=== PATIENT | female | born 1970 | race Caucasian/White ===

== ENCOUNTER 2016-04-11 21:14 | Emergency (ER) | payer MEDICAID ==
[2016-04-11 21:28] VITALS: BMI 32.1
[2016-04-11] MEDS ORDERED: NS 1,000 ML IV ONE (21:51)
[2016-04-11] MEDS ORDERED: ONDANSETRON HCL 4 MG/2 ML VIAL IV ONE (21:51)
[2016-04-11] MEDS ORDERED: HYDROmorphone 1 MG INJECTION IV ONE (21:51)
[2016-04-11 22:16] LABS: AUTOMATED BASOPHIL 0.6 % (0-2); AUTOMATED EOSINOPHIL 0.9 % (0-5); AUTOMATED LYMPH 30.9 % (17-44); AUTOMATED NEUTROPHIL 58.6 % (45-76)
[2016-04-11 22:25] LABS: BLOOD UREA NITROGEN 12 MG/DL (7-17); CALCIUM 9.9 MG/DL (8.4-10.2); CALCULATED OSMOLALITY 274 MOs/Kg (270-290); CHLORIDE 101 mEq/L (98-107); GLUCOSE 212 mg/dL (70-99); SODIUM LEVEL 139 mEq/L (137-146); TOTAL PROTEIN 7.6 G/DL (6.3-8.2)
[2016-04-11 22:26] LABS: LEUKOCYTES/URINE NEG (NEGATIVE); NITRITE/URINE NEG (NEGATIVE); RBC/URINE 0-2 (0-5); URINE OCCULT BLOOD NEG (NEG/TRACE); WBC/URINE 0-2 (0-5)
--- NOTE | 2016-04-11 23:39 | DIRPT ---
CLINICAL DATA: Right flank pain for 12 hours. History of stones. EXAM: CT ABDOMEN AND PELVIS WITHOUT CONTRAST TECHNIQUE: Multidetector CT imaging of the abdomen and pelvis was performed following the standard protocol without IV contrast. COMPARISON: CT 3 weeks prior 03/21/2016. Multiple prior CT and renal ultrasound reviewed. FINDINGS: Lower chest: The included lung bases are clear. Coronary artery calcifications are partially included. Liver: No focal lesion allowing for lack contrast. Probable granuloma about the medial right capsule. Hepatobiliary: Gallbladder physiologically distended, no calcified stone. No biliary dilatation. Pancreas: Normal. Spleen: Normal. Adrenal glands: 3.8 cm left adrenal adenoma is unchanged. Right adrenal gland is normal. Kidneys: Punctate nonobstructing stone in the upper right kidney is unchanged. No hydronephrosis or obstructive uropathy. No left hydronephrosis. Gross ureters are decompressed without stones along the course. Stomach/Bowel: Stomach physiologically distended. There are no dilated or thickened small bowel loops. Small volume of stool throughout the colon without colonic wall thickening. The appendix is normal. Vascular/Lymphatic: No retroperitoneal adenopathy. Abdominal aorta is normal in caliber. Mild atherosclerosis. Reproductive: Uterus surgically absent. No adnexal mass. Bladder: Physiologically distended without stone. Other: No free air, free fluid, or intra-abdominal fluid collection. Musculoskeletal: There are no acute or suspicious osseous abnormalities. Postsurgical change in the lower lumbar spine. IMPRESSION: Unchanged nonobstructing right renal stone. No obstructive uropathy or acute intra-abdominal process. Electronically Signed By: Milagro Argueta M.D. On: 04/11/2016 23:37
--- NOTE | 2016-04-11 23:48 | EDPRACDOC ---
- General Information Chief Complaint: Female Urogenital Problems Stated Complaint: ABD PAIN,ALLERGIC REACTION Time Seen by Provider: 04/11/16 22:53 Information Source: Patient Mode Of Arrival: Ambulance Home Medications: Home Medications Albuterol Sulfate [Proventil Hfa] 1 - 2 puff INH Q4H PRN 10/07/14 Diltiazem HCl [Diltiazem 24Hr ER] 240 mg PO DAILY 10/07/14 Duloxetine [Cymbalta] 60 mg PO BID 10/07/14 Exenatide [Byetta] 5 mcg SQ BID 10/07/14 Fluoxetine HCl 60 mg PO DAILY 10/07/14 Glipizide [Glucotrol] 10 mg PO BID(DON) 10/07/14 Insulin Glargine [Lantus Pen] 30 units SQ BID 10/07/14 Metformin HCl [Glucophage] 500 mg PO BID 10/07/14 Promethazine HCl 25 mg PO Q6H PRN 10/07/14 Metoclopramide HCl [Reglan] 5 mg PO Q8 PRN #30 tab 12/03/14 Ondansetron [Zofran Odt] 4 mg PO TID PRN #10 tab.rapdis 04/11/16 Tramadol HCl 50 mg PO Q6 PRN #7 tablet 04/11/16 Allergies/Adverse Reactions: Allergies Allergy/AdvReac Type Severity Reaction Status Date / Time ibuprofen Allergy Hives* Verified 12/03/14 19:54 ketorolac tromethamine Allergy Hives* Verified 12/03/14 19:54 [From Toradol] Sulfa (Sulfonamide Allergy Nausea/Vomi Verified 12/03/14 19:54 Antibiotics) ting sulfamethoxazole Allergy Edema-Gener Verified 12/03/14 19:54 [From Bactrim] alized trimethoprim [From Bactrim] Allergy Edema-Gener Verified 12/03/14 19:54 alized - History of Present Illness Onset: 10 am HPI: C/o right flank pain since this am with pain radiating to groin, with N/V. Denies vaginal sx, urinary sx, fever, sob, cp. Hx of kidney stone 2 months ago at [facility]. Med hx = DM, [place] 2016, HTN. Surgical hx = partial hysterectomy (left ovary still present). 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 YES Medications REAL E[employer] ASSOCIATE ATTORNEY (Medication/ Morphine 4mg IV Dose/Time) EMS Treatment BLS IV Yes ED Past Medical History - History Reviewed Yes Nurses notes reviewed and agree except as marked - Patient Medical History Cardiac History: Reports: Hypertension, Heart Attack Psychological History: Denies: Depression Systemic History: Reports: Diabetes - Social Medical History Smoking Status: Heavy tobacco smoker (5 or more cigarettes/day or daily pipe/ cigar) EDM Review of Systems - Review of Systems ROS Negative Except as Marked: Yes All systems reviewed and were negative except as marked Gastrointestinal: Diarrhea, Nausea Genitourinary: Flank Pain (right) - Physical Exam Constitutional: Distress (pain) Oriented to: Time, Person, Place Last recorded Vital Signs: Last Vital Signs Temp Pulse 112 04/11/16 21:24 Resp 20 04/11/16 21:24 BP 127/79 04/11/16 21:24 Pulse Ox 91 04/11/16 21:24 Oxygen Pulse Oxygen Saturation 91 O2 Device Room Air Oxygen Flow Rate Fraction of Inspired Oxygen ( FIO2) - HEENT Head: Normal Eye Exam: negative: Conjunctival Injection, Scleral Icterus Oropharynx: negative: Drooling TMJ: Normal Nose: No Symptoms Reported Neck: Normal - Respiratory/Cardiovascular Respiratory: Normal - CTA Cardiovascular: Normal - GI Auscultation: Normal Palpation: Normal Tenderness: Other (right flank) Moreno's Sign: Negative - Musculoskeletal Back: Normal Extremities: Normal - Integumentary Skin: Normal - Neurologic Thought: Coherent Perception: Normal - Results 04/11/16 22:10 04/11/16 22:10 WBC 10.1 xk/uL (3.8-10.8) 04/11/16 22:10 RBC 5.33 xM/uL (4.20-5.40) 04/11/16 22:10 Hgb 14.9 g/dL (12.0-16.0) 04/11/16 22:10 Hct 44.2 % (36-47) 04/11/16 22:10 MCV 83 fL (81-99) 04/11/16 22:10 MCH 28.0 pg (27-32) 04/11/16 22:10 MCHC 33.8 g/dl (33-36) 04/11/16 22:10 RDW 17.3 % (11.5-14.5) H 04/11/16 22:10 Plt Count 208 xk/uL (130-400) 04/11/16 22:10 MPV 8.0 fL (7.4-10.4) 04/11/16 22:10 Neut % (Auto) 58.6 % (45-76) 04/11/16 22:10 Lymph % (Auto) 30.9 % (17-44) 04/11/16 22:10 [place] % (Auto) 9.0 % (3-10) 04/11/16 22:10 Eos % (Auto) 0.9 % (0-5) 04/11/16 22:10 Baso % (Auto) 0.6 % (0-2) 04/11/16 22:10 Absolute Neuts (auto) 5.86 xk/uL (1.7-8.2) 04/11/16 22:10 Absolute Lymphs (auto) 3.03 xk/uL (0.65-4.75) 04/11/16 22:10 Sodium 139 mEq/L (137-146) 04/11/16 22:10 Potassium 4.4 mEq/L (3.5-5.1) 04/11/16 22:10 Chloride 101 mEq/L (98-107) 04/11/16 22:10 Carbon Dioxide 20 mMOL/L (22-33) L 04/11/16 22:10 Anion Gap 22 mEq/L (8-16) H 04/11/16 22:10 BUN 12 MG/DL (7-17) 04/11/16 22:10 Creatinine 0.50 MG/DL (0.52-1.04) L 04/11/16 22:10 Estimated GFR (MDRD) > 60 mL/min (>=60) 04/11/16 22:10 Glucose 212 mg/dL (70-99) H 04/11/16 22:10 Calculated Osmolality 274 MOs/Kg (270-290) 04/11/16 22:10 Calcium 9.9 MG/DL (8.4-10.2) 04/11/16 22:10 Total Bilirubin 0.5 MG/DL (0.2-1.3) 04/11/16 22:10 AST 19 IU/L (14-36) 04/11/16 22:10 ALT 37 IU/L (9-52) 04/11/16 22:10 Alkaline Phosphatase 153 IU/L (38-126) H 04/11/16 22:10 Total Protein 7.6 G/DL (6.3-8.2) 04/11/16 22:10 Albumin 4.5 G/DL (3.5-5.0) 04/11/16 22:10 Urine Color Yellow 04/11/16 22:10 Urine Clarity Sl cldy 04/11/16 22:10 Urine pH 5.0 (5.0-8.0) 04/11/16 22:10 Ur Specific [place] 1.005 (1.003-1.035) 04/11/16 22:10 Urine Protein Neg (NEG/TRACE) 04/11/16 22:10 Urine Glucose (UA) 3+ (NEGATIVE) H 04/11/16 22:10 Urine Ketones 1+ (NEGATIVE) H 04/11/16 22:10 Urine Occult Blood Neg (NEG/TRACE) 04/11/16 22:10 Urine Nitrite Neg (NEGATIVE) 04/11/16 22:10 Urine Bilirubin Neg (NEGATIVE) 04/11/16 22:10 Urine Urobilinogen <2.0 MG/DL (0-1) 04/11/16 22:10 Ur Leukocyte Esterase Neg (NEGATIVE) 04/11/16 22:10 Urine RBC 0-2 (0-5) 04/11/16 22:10 Urine WBC 0-2 (0-5) 04/11/16 22:10 Ur Epithelial Cells 1+ 04/11/16 22:10 Lab Results 04/11/16 04/11/16 04/11/16 22:10 22:10 22:10 WBC 10.1 RBC 5.33 Hgb 14.9 Hct 44.2 MCV 83 MCH 28.0 MCHC 33.8 RDW 17.3 H Plt Count 208 MPV 8.0 Neut % (Auto) 58.6 Lymph % (Auto) 30.9 [place] % (Auto) 9.0 Eos % (Auto) 0.9 Baso % (Auto) 0.6 Absolute Neuts (auto) 5.86 Absolute Lymphs (auto) 3.03 Sodium 139 Potassium 4.4 Chloride 101 Carbon Dioxide 20 L Anion Gap 22 H BUN 12 Creatinine 0.50 L Estimated GFR (MDRD) > 60 Glucose 212 H Calculated Osmolality 274 Calcium 9.9 Total Bilirubin 0.5 AST 19 ALT 37 Alkaline Phosphatase 153 H Total Protein 7.6 Albumin 4.5 Urine Color Yellow Urine Clarity Sl cldy Urine pH 5.0 Ur Specific [place] 1.005 Urine Protein Neg Urine Glucose (UA) 3+ H Urine Ketones 1+ H Urine Occult Blood Neg Urine Nitrite Neg Urine Bilirubin Neg Urine Urobilinogen <2.0 Ur Leukocyte Esterase Neg Urine RBC 0-2 Urine WBC 0-2 Ur Epithelial Cells 1+ - Diagnostic Imaging Pelvis Image interpreted by: Radiologist EXAM: CT ABDOMEN AND PELVIS WITHOUT CONTRAST TECHNIQUE: Multidetector CT imaging of the abdomen and pelvis was performed following the standard protocol without IV contrast. COMPARISON: CT 3 weeks prior 03/21/2016. Multiple prior CT and renal ultrasound reviewed. FINDINGS: Lower chest: The included lung bases are clear. Coronary artery calcifications are partially included. Liver: No focal lesion allowing for lack contrast. Probable granuloma about the medial right capsule. Hepatobiliary: Gallbladder physiologically distended, no calcified stone. No biliary dilatation. Pancreas: Normal. Spleen: Normal. Adrenal glands: 3.8 cm left adrenal adenoma is unchanged. Right adrenal gland is normal. Kidneys: Punctate nonobstructing stone in the upper right kidney is unchanged. No hydronephrosis or obstructive uropathy. No left hydronephrosis. Gross ureters are decompressed without stones along the course. Stomach/Bowel: Stomach physiologically distended. There are no dilated or thickened small bowel loops. Small volume of stool throughout the colon without colonic wall thickening. The appendix is normal. Vascular/Lymphatic: No retroperitoneal adenopathy. Abdominal aorta is normal in caliber. Mild atherosclerosis. Reproductive: Uterus surgically absent. No adnexal mass. Bladder: Physiologically distended without stone. Other: No free air, free fluid, or intra-abdominal fluid collection. Musculoskeletal: There are no acute or suspicious osseous abnormalities. Postsurgical change in the lower lumbar spine. IMPRESSION: Unchanged nonobstructing right renal stone. No obstructive uropathy or acute intra-abdominal process. Electronically Signed By: Milagro Argueta M.D. On: 04/11/2016 23:37 Decision Time to Discharge: 23:50 - Departure Disposition: Home Condition: Stable Final Diagnosis: Right flank pain Instructions: Kidney Stones (ED), Non-pharmacological Pain Management Therapies for Adults (GEN), Abdominal Pain (ED) Education/Counseling Given To: Patient Education/Counseling Given Regarding: Diagnosis, Treatment, Prognosis, Follow Up Referrals: None,No Provider [Primary Care Provider] - One Week Prescriptions: New Tramadol HCl 50 mg PO Q6 PRN #7 tablet PRN Reason: Pain Ondansetron [Zofran Odt] 4 mg PO TID PRN #10 tab.rapdis PRN Reason: Nausea/Vomiting No Action Promethazine HCl 25 mg PO Q6H PRN PRN Reason: Nausea/Vomiting Metformin HCl [Glucophage] 500 mg PO BID Fluoxetine HCl 60 mg PO DAILY Glipizide [Glucotrol] 10 mg PO BID(DON) Duloxetine [Cymbalta] 60 mg PO BID Diltiazem HCl [Diltiazem 24Hr ER] 240 mg PO DAILY Albuterol Sulfate [Proventil Hfa] 1 - 2 puff INH Q4H PRN PRN Reason: Shortness Of Breath Insulin Glargine [Lantus Pen] 30 units SQ BID Exenatide [Byetta] 5 mcg SQ BID Metoclopramide HCl [Reglan] 5 mg PO Q8 PRN #30 tab PRN Reason: Nausea Additional Instructions: Follow up with urology. Return to ED for any new or worsening symptoms.
[2016-04-11] MEDS ORDERED: ONDANSETRON HCL 4 MG ODT TAB PO ONE (23:53)
[2016-04-11] MEDS ORDERED: ACETAMINOPHEN 325 MG/TAB TABLET PO ONE (23:53)
[2016-04-12 00:19] VITALS: BP 126/84; PULSE 84
== END 2016-04-12 00:20 | disposition home or self-care (01) ==
LOC: ED 21:14
DX: R10.9 Unspecified abdominal pain (principal)
CPT/HCPCS: 36415; 74176; 80053; 81001; 85025; 96361; 96374; 96375; 99283; J1170; J2405; J3490

== ENCOUNTER 2016-04-12 03:23 | Emergency (ER) | payer SELFPAY ==
[2016-04-12 03:52] VITALS: TEMP 97.9; BMI 32.9
[2016-04-12] MEDS ORDERED: NS 1,000 ML IV ONE (04:00)
[2016-04-12] MEDS ORDERED: HYDROmorphone 1 MG INJECTION IV ONE (04:00)
[2016-04-12] MEDS ORDERED: ONDANSETRON HCL 4 MG/2 ML VIAL IV ONE (04:00)
[2016-04-12] MEDS ORDERED: OXYCODONE HCL 5 MG TABLET PO ONE (04:18)
--- NOTE | 2016-04-12 05:29 | EDPRACDOC ---
- General Information Chief Complaint: Female Urogenital Problems Stated Complaint: RT ABD PAIN Time Seen by Provider: 04/12/16 05:27 Information Source: Family Mode Of Arrival: Walk Home Medications: Home Medications Albuterol Sulfate [Proventil Hfa] 1 - 2 puff INH Q4H PRN 10/07/14 Diltiazem HCl [Diltiazem 24Hr ER] 240 mg PO DAILY 10/07/14 Duloxetine [Cymbalta] 60 mg PO BID 10/07/14 Exenatide [Byetta] 5 mcg SQ BID 10/07/14 Fluoxetine HCl 60 mg PO DAILY 10/07/14 Glipizide [Glucotrol] 10 mg PO BID(DON) 10/07/14 Insulin Glargine [Lantus Pen] 30 units SQ BID 10/07/14 Metformin HCl [Glucophage] 500 mg PO BID 10/07/14 Promethazine HCl 25 mg PO Q6H PRN 10/07/14 Metoclopramide HCl [Reglan] 5 mg PO Q8 PRN #30 tab 12/03/14 Ondansetron [Zofran Odt] 4 mg PO TID PRN #10 tab.rapdis 04/11/16 Tramadol HCl 50 mg PO Q6 PRN #7 tablet 04/11/16 Allergies/Adverse Reactions: Allergies Allergy/AdvReac Type Severity Reaction Status Date / Time ibuprofen Allergy Hives* Verified 12/03/14 19:54 ketorolac tromethamine Allergy Hives* Verified 12/03/14 19:54 [From Toradol] Sulfa (Sulfonamide Allergy Nausea/Vomi Verified 12/03/14 19:54 Antibiotics) ting sulfamethoxazole Allergy Edema-Gener Verified 12/03/14 19:54 [From Bactrim] alized trimethoprim [From Bactrim] Allergy Edema-Gener Verified 12/03/14 19:54 alized - History of Present Illness Onset: Yesterday HPI: evaluated here last night, diagnosed with kidney stone, pain improved and was discharged with Rx zofran and tramadol. She had been waiting in the lobby for a ride that did not arrive. Her pain returned so she checked back in for pain medication until her ride shows up. no F/C. nausea no emesis, is drinking soda. pain is R flank, sharp and mod to severe. Pain Began: Reports: Spontaneous Pain Location: Reports: Flank Pain Severity: Severe Pain Quality: Reports: Sharp Oral Intake: Normal Urinary Output: Normal Modifying Factors: improves with: Nothing Relevant History of: Reports: Urolithiasis ED Past Medical History - History Reviewed Yes Nurses notes reviewed and agree except as marked - Patient Medical History Cardiac History: Reports: Hypertension, Heart Attack Psychological History: Reports: Depression Systemic History: Reports: Diabetes Surgical History: Reports: Hysterectomy - Social Medical History Smoking Status: Heavy tobacco smoker (5 or more cigarettes/day or daily pipe/ cigar) EDM Review of Systems - Review of Systems ROS Negative Except as Marked: Yes All systems reviewed and were negative except as marked - Physical Exam Constitutional: Alert (Awake), No apparent distress Oriented to: Time, Person, Place Last recorded Vital Signs: Last Vital Signs Temp 97.9 F 04/12/16 03:46 Pulse 98 04/12/16 04:16 Resp 18 04/12/16 04:16 BP 123/79 04/12/16 04:16 Pulse Ox 97 04/12/16 04:16 Oxygen Pulse Oxygen Saturation 97 O2 Device Room Air Oxygen Flow Rate Fraction of Inspired Oxygen ( FIO2) - HEENT Head: Normal ( normocephalic) Eye Exam: Normal (PERRL, EOMI, Sclera white) Oropharynx: Normal (Pharynx:Moist without exudate,Gums-no swelling) Tympanic Membrane: Normal ENT EAC: Normal TMJ: Normal Nose: No Symptoms Reported (septum midline) Neck: Normal (FROM, trachea at midline) - Respiratory/Cardiovascular Respiratory: Normal - CTA (BBS clear to auscultation without adventitious sounds ) Cardiovascular: Normal (RRR without murmur, gallop or rub) - GI Auscultation: Normal (NABS) Palpation: Normal (Soft,No rebound or guarding, non distended) Tenderness: Non tender Moreno's Sign: Negative - Musculoskeletal Back: Normal (Non-Tender) Extremities: Normal (Normal tone, Pulses 2+ No cyanosis or edema, FROM) - Integumentary Skin: Normal, Warm, Dry Lymphatics: Normal (no adenopathy) - Neurologic Memory Impaired: Normal Motor Function: Normal (Normal tone, Pulses 2+ No cyanosis or edema, FROM) Cranial Nerve: Normal (CN II-X11 intact sensation, strength 5/5) Cerebellar: Normal Mood Description: Normal Perception: Normal - Re-evaluation Re-evaluation 1 Re-evaluation Time: 05:30 (pain improving. when comfrtable will d/c home. Urology referral. Has Rx. ) Re-evaluation 2 Re-evaluation Time: 06:22 (plan d/c home fill Rx and f/u Urology) Decision Time to Discharge: 06:22 - Departure Yes I personally saw and evaluated the patient. Disposition: Home Condition: Stable Final Diagnosis: Right flank pain Instructions: Non-pharmacological Pain Management Therapies for Adults (GEN), Abdominal Pain (ED) Education/Counseling Given To: Patient Education/Counseling Given Regarding: Diagnosis, Follow Up Referrals: None,No Provider [Primary Care Provider] - One Week Fritz Dickson MD [Staff Physician] - One Week Prescriptions: No Action Promethazine HCl 25 mg PO Q6H PRN PRN Reason: Nausea/Vomiting Metformin HCl [Glucophage] 500 mg PO BID Fluoxetine HCl 60 mg PO DAILY Glipizide [Glucotrol] 10 mg PO BID(DON) Duloxetine [Cymbalta] 60 mg PO BID Diltiazem HCl [Diltiazem 24Hr ER] 240 mg PO DAILY Albuterol Sulfate [Proventil Hfa] 1 - 2 puff INH Q4H PRN PRN Reason: Shortness Of Breath Insulin Glargine [Lantus Pen] 30 units SQ BID Exenatide [Byetta] 5 mcg SQ BID Metoclopramide HCl [Reglan] 5 mg PO Q8 PRN #30 tab PRN Reason: Nausea Tramadol HCl 50 mg PO Q6 PRN #7 tablet PRN Reason: Pain Ondansetron [Zofran Odt] 4 mg PO TID PRN #10 tab.rapdis PRN Reason: Nausea/Vomiting
[2016-04-12 06:13] VITALS: PULSE 70
[2016-04-12] MEDS ORDERED: ONDANSETRON HCL 4 MG ODT TAB PO ONE (06:21)
[2016-04-12 06:43] VITALS: BP 131/71
== END 2016-04-12 06:42 | disposition home or self-care (01) ==
LOC: ED 03:23
DX: R10.9 Unspecified abdominal pain (principal)
CPT/HCPCS: 99284; J3490; J1170; J2405